=== PATIENT | female | born 2000 | race Caucasian/White ===

== ENCOUNTER 2022-08-28 12:53 | Emergency (ER) | payer OTHER ==
[~2022-08-28] VITALS: Ht 157.5 cm; Wt 56.2 kg
[2022-08-28 13:41] VITALS: BP 114/61
--- NOTE | 2022-08-28 14:00 | NUR ---
22 y/o female, c/o productive cough, congestion, throat pain 7/10 and fever at home 101.0 for 1 week. temp in triage 98.6 at this time. pmh: asthma nka med: joseil, emily musinex
[2022-08-28] MEDS ORDERED: IBUP-2213 PO ×2 (14:26→15:03)
[2022-08-28] MEDS ORDERED: PROM118S5 PO ×2 (14:26→15:03)
[2022-08-28] MEDS ORDERED: LIDO100S PO ×2 (14:26→15:03)
--- NOTE | 2022-08-28 14:52 | NUR ---
Patient discharged with v/s stable. Written and verbal after care instructions ABOUT UPPER RESPIRATORY INFECTION given and explained. Patient alert, oriented and verbalized understanding of instructions. Ambulatory with steady gait. All questions addressed prior to discharge. ID band removed. Patient advised to follow up with PMD. Rx of IBUPROFEN, LIDOCAINE VISCOUS, PROMETHAZINE DM given. Patient educated on indication of medication including possible reaction and side effects. Opportunity to ask questions provided and answered.
== END 2022-08-28 14:52 | disposition home or self-care (01) ==
LOC: MED 12:53
DX: J06.9 Acute upper respiratory infection, unspecified (principal); Z20.822 Contact with and (suspected) exposure to COVID-19; J45.909 Unspecified asthma, uncomplicated
CPT/HCPCS: 99283

== ENCOUNTER 2023-06-21 04:28 | Emergency (ER) | payer OTHER ==
[~2023-06-21] VITALS: Ht 157.5 cm; Wt 57.6 kg
[~2023-06-21 04:28] MED LIST: IBUP-2213 PO; LIDO100S PO; PROM118S5 PO
[2023-06-21 04:29] VITALS: BP 86/52; PULSE 63; RESP 16; TEMP 97.4
[2023-06-21] MEDS ORDERED: NACL 0.9% 1,000 ML IV ONE (04:40)
[2023-06-21 06:14] VITALS: BP 102/52; PULSE 66; RESP 16; TEMP 97.4; O2SAT 98
[2023-06-21] MEDS ORDERED: ONDANSETRON 4 MG/2 ML VIAL IVP ONE (06:15)
[2023-06-21] MEDS ORDERED: ONDA-188 SL (07:17)
== END 2023-06-21 07:26 | disposition home or self-care (01) ==
LOC: MED 04:28
DX: F10.129 Alcohol abuse with intoxication, unspecified (principal); Y90.9 Presence of alcohol in blood, level not specified
CPT/HCPCS: 96361; 96374; 99283; J2405; J7030